=== PATIENT | female | born 1945 | race Caucasian/White ===

== ENCOUNTER 2019-03-29 18:10 | Inpatient (IN) | payer MEDICARE, OTHER ==
[2019-03-29 20:58] VITALS: BP 118/59
[2019-03-29] MEDS ORDERED: Acetaminophen 500 MG TAB PO PRN (21:00)
[2019-03-29] MEDS ORDERED: Magnesium Hydroxide (MOM) 30 mL UDC PO PRN (21:19)
[2019-03-29] MEDS ORDERED: Albuterol/Ipratropium Neb 3 ML AERS HHN PRN (21:19)
[2019-03-29] MEDS ORDERED: Maalox 30 mL Cup PO PRN (21:19)
--- NOTE | 2019-03-30 08:53 | History & Physical ---
ADMIT DATE: 03/30/2019 CHIEF COMPLAINT: Agitation and aggressive behavior. HISTORY OF PRESENT ILLNESS: This is a 73-year-old female who was originally admitted from [facility] Emergency Room. The patient used to live in a shelter facility on which she started to have aggressive behavior towards the staff. The patient was seen at the Emergency Room for medical clearance. Once medically cleared, the patient was transferred here to [facility] Psychiatric Unit for further behavioral health management. REVIEW OF SYSTEMS: GENERAL: This is a 73-year-old female. No fever, no weakness. HEAD: No headache. No dizziness. EYES: No eye pain, no blurring of vision. NECK: No neck pain or nuchal rigidity. CHEST: No chest pain or palpitation. PULMONARY: No coughing or shortness of breath. GASTROINTESTINAL: No abdominal pain, no constipation or diarrhea. MUSCULOSKELETAL: No joint pain. No muscle pain. SOCIAL HISTORY: The patient lives in a shelter facility prior to hospitalization. PAST SURGICAL HISTORY: Unremarkable. FAMILY HISTORY: Unremarkable. PSYCHIATRIC HISTORY: Includes bipolar disorder. PAST MEDICAL HISTORY: Includes osteoarthritis, osteoporosis. PAST SURGICAL HISTORY: Unremarkable. PHYSICAL EXAMINATION: VITAL SIGNS: Temperature 97.9, heart rate 60, blood pressure 118/59, respirations of 20, 96% on room air. GENERAL: This is a 73-year-old female that appears as stated, in no acute distress. HEENT: Head is atraumatic, normocephalic. Eyes: Bilateral conjunctivae are clear. Bilateral pupils are equally round and reactive. NECK: Supple. No JVD. CARDIOVASCULAR: S1 and S2, without murmur. LUNGS: Clear to auscultation. NEUROLOGIC: Soft and nontender without guarding. Positive bowel sounds. MUSCULOSKELETAL: No clubbing. No cyanosis noted. ASSESSMENT: 1. Psychosis. 2. Bipolar. 3. Osteoarthritis. 4. Osteoporosis. PLAN: We will admit the patient to Psychiatric Unit. We will follow up with a psychiatrist to monitor the patient's condition and behavior. We will put the patient on aspiration and fall precaution. We will do medication reconciliation accordingly. Treatment plans were discussed with the patient's nurse. Treatment plans were discussed with Dr. Arroyo. [facility]# [id number]
[2019-03-30] MEDS: Calcium Carb/Vit D 500 mg/200 U Tab PO SCH (10:00)
[2019-03-30] MEDS: Multivitamin Tab PO SCH (10:00)
[2019-03-30] MEDS: Hydrocodone/APAP 5mg/325mg Tab PO PRN (15:36)
--- NOTE | 2019-03-30 23:54 | Consultation ---
DATE OF CONSULTATION: 03/30/2019 The patient was seen and evaluated. The patient's chart reviewed. This is an initial psychiatric evaluation, covering for Dr. Fried. IDENTIFYING DATA: A 73-year-old female brought here from [facility] for aggressive behavior towards staff. Today on [id number]-[id number] evaluation, the patient mostly perseverates, screaming "aww, aww", angered. She does place her hand on her right knee and reports pain. Besides that information, she is more irritable and refuses to be interviewed, agitated at times during the interview. FAMILY PSYCHIATRIC HISTORY: Noncontributory. SOCIAL HISTORY: Living in senior living. PAST MEDICAL HISTORY: Includes osteoarthritis, osteoporosis. PAST PSYCHIATRIC HISTORY: History of dementia, unspecified mood disorder. FAMILY HISTORY: Noncontributory. CURRENT MEDICATIONS: Include albuterol, Fosamax, Celebrex, Depakote, Ativan, magnesium, Seroquel 25 mg p.o. at bedtime. MENTAL STATUS EXAMINATION: Irritable, anxious, perseverates on saying "aww", limited historian, limited insight, judgment and impulse control. ASSESSMENT AND PLAN: A 73-year-old female brought in here for aggressive behavior. After reviewing the medical evaluation by Dr. Lopez, no clear observation on the patient's pain. Through the nursing, called the exchange to contact again the medical doctor to further evaluate the patient's current knee pain that could also be exacerbating the patient's behavior as she is currently demented and difficulty engaging in conversation, not uncommon that the pain can exacerbate the patient's behavior. PLAN: 1. Admit the patient. 2. Dr. Arroyo to continue addressing the patient's pain. 3. Monitor and evaluate. 4. Continue with the current medication regimens. 5. Obtain more collateral baseline information. JOB# [id number]
[2019-03-31] MEDS: Calcium Carb/Vit D 500 mg/200 U Tab PO SCH (09:44)
[2019-03-31] MEDS: Multivitamin Tab PO SCH (09:44)
[2019-03-31] MEDS: Hydrocodone/APAP 5mg/325mg Tab PO PRN (09:46)
--- NOTE | 2019-03-31 16:26 | Internal Medicine Prog Note ---
Internal Medicine Subjective - Subjective Patient seen and examined:: with staff Patient is:: awake, verbal, in bed, agitated, confused Per staff patient has:: no adverse event, no episodes of fall Internal Medicine Objective - Physical Exam Vitals and I&O: Vital Signs Temp 98.6 F 03/31/19 14:00 Pulse 74 03/31/19 14:00 Resp 18 03/31/19 14:00 BP 98/54 03/31/19 14:00 Pulse Ox 100 03/31/19 14:00 Intake & Output 03/30/19 03/31/19 03/31/19 19:59 06:59 18:59 Intake Total Balance Intake: Oral Other: # Voids # Bowel Movements Active Medications: Current Medications Acetaminophen (Tylenol Extra Strength) 500 mg PO BID PRN PRN Reason: MILD PAIN (LEVEL 1-3) Stop: 05/28/19 20:59 Last Admin: 03/30/19 11:54 Dose: 500 mg Acetaminophen/Hydrocodone Bitart ([place] 5mg/325mg) 1 tab PO Q4H PRN PRN Reason: Pain (Moderate 4-6) Stop: 05/29/19 14:59 Last Admin: 03/31/19 09:46 Dose: 1 tab Al Hydrox/Mg Hydrox/Simethicone (Maalox) 30 ml PO Q4HR PRN PRN Reason: GI DISTRESS Stop: 05/28/19 21:18 Albuterol/Ipratropium (Duoneb Neb) 3 ml HHN Q4H PRN PRN Reason: Shortness of Breath Stop: 05/28/19 21:18 Alendronate Sodium (Fosamax) 70 mg PO @0630 [facility] Stop: 05/29/19 06:29 Last Admin: 03/30/19 06:51 Dose: 70 mg Calcium/Vitamin D (Oscal W/Vitamin D) 1 tab PO DAILY [facility] Stop: 05/29/19 08:59 Last Admin: 03/31/19 09:44 Dose: 1 tab Celecoxib (Celebrex) 100 mg PO BID [facility] Stop: 05/29/19 08:59 Last Admin: 03/31/19 09:47 Dose: 100 mg Divalproex Sodium (Depakote Dr) 125 mg PO [facility]; Protocol Stop: 05/29/19 20:59 Last Admin: 03/30/19 21:00 Dose: 125 mg Divalproex Sodium (Depakote Dr) 500 mg PO BID [facility]; Protocol Stop: 05/29/19 13:59 Last Admin: 03/31/19 09:48 Dose: 500 mg Lorazepam (Ativan) 0.5 mg PO TID [facility]; Protocol Stop: 05/29/19 08:59 Last Admin: 03/31/19 09:48 Dose: 0.5 mg Magnesium Hydroxide (Milk Of Magnesia) 30 ml PO HS PRN PRN Reason: Constipation Stop: 05/28/19 21:18 Magnesium Oxide (Mag-Oxide) 200 mg PO BID [facility] Stop: 05/29/19 08:59 Last Admin: 03/30/19 16:40 Dose: 200 mg Multivitamins/Vitamin C (Theragran) 1 tab PO DAILY [facility] Stop: 05/29/19 08:59 Last Admin: 03/31/19 09:44 Dose: 1 tab Quetiapine Fumarate (Seroquel) 25 mg PO HS [facility]; Protocol Stop: 05/29/19 20:59 Last Admin: 03/30/19 21:00 Dose: 25 mg Zolpidem Tartrate (Ambien) 5 mg PO HS PRN PRN Reason: Insomnia Stop: 05/28/19 21:18 General: weak, demented HEENT: NC/AT, PERRLA Neck: Supple, No JVD Lungs: other (no acute respiratory distress) Cardiovascular: RRR Abdomen: soft, non-tender, non-distended Extremities: other (right knee abrasion- healing) Internal Medicine Assmt/Plan - Assessment Assessment: Psychosis Bipolar OA Osteoporosis - Plan Plan: Continue current treatment plan. Monitor Labs. Continue current medications Continue to monitor VS Monitor Diet/Nutritional support. Psych management per Psychiatry. Pain Management. PT/OT prn Safety precaution, Fall precaution, frequent nursing round. Supportive care. Continue collaborating with consulting specialists, case management and nursing team
--- NOTE | 2019-03-31 18:44 | Progress Notes ---
DATE: SUBJECTIVE: The patient was seen and evaluated. The patient's chart reviewed. Overnight medical doctor ordered medications for the patient's pain, right knee pain and diagnosed with osteoarthritis. MENTAL STATUS EXAMINATION: Today on [id number] evaluation, reporting less pain. Still confused, need a lot of redirection, disengaged. ASSESSMENT AND PLAN: Behavior disturbances coming from dementia, currently in pain, being treated by medical doctor. The pain also exacerbates a lot of the patient's distraught, emotional state. We will continue monitoring and evaluating. Primary medical team to continue treating. JOB# [id number]
[2019-04-01] MEDS: Multivitamin Tab PO SCH (09:21)
[2019-04-01] MEDS: Calcium Carb/Vit D 500 mg/200 U Tab PO SCH (09:21)
--- NOTE | 2019-04-01 10:08 | Internal Medicine Prog Note ---
Internal Medicine Subjective - Subjective Service Date: 04/01/19 Patient seen and examined:: with staff Patient is:: awake, verbal, in bed, agitated, confused Patient Complaints of:: other (C/o Right knee pain.) Per staff patient has:: no adverse event, no episodes of fall Internal Medicine Objective - Physical Exam Vitals and I&O: Vital Signs Temp 97.2 F 04/01/19 06:35 Pulse 63 04/01/19 06:35 Resp 18 04/01/19 06:35 BP 97/65 04/01/19 06:35 Pulse Ox 95 04/01/19 06:35 Intake & Output 03/31/19 04/01/19 04/01/19 18:59 06:59 18:59 Intake Total 1100 360 Balance 1100 360 Intake: Oral 1100 360 Other: # Voids 3 Active Medications: Current Medications Acetaminophen (Tylenol Extra Strength) 500 mg PO BID PRN PRN Reason: MILD PAIN (LEVEL 1-3) Stop: 05/28/19 20:59 Last Admin: 03/30/19 11:54 Dose: 500 mg Acetaminophen/Hydrocodone Bitart ([place] 5mg/325mg) 1 tab PO Q4H PRN PRN Reason: Pain (Moderate 4-6) Stop: 05/29/19 14:59 Last Admin: 03/31/19 09:46 Dose: 1 tab Al Hydrox/Mg Hydrox/Simethicone (Maalox) 30 ml PO Q4HR PRN PRN Reason: GI DISTRESS Stop: 05/28/19 21:18 Albuterol/Ipratropium (Duoneb Neb) 3 ml HHN Q4H PRN PRN Reason: Shortness of Breath Stop: 05/28/19 21:18 Alendronate Sodium (Fosamax) 70 mg PO Sa@0630 [facility] Stop: 05/29/19 06:29 Last Admin: 03/30/19 06:51 Dose: 70 mg Calcium/Vitamin D (Oscal W/Vitamin D) 1 tab PO DAILY [facility] Stop: 05/29/19 08:59 Last Admin: 04/01/19 09:21 Dose: 1 tab Celecoxib (Celebrex) 100 mg PO BID [facility] Stop: 05/29/19 08:59 Last Admin: 04/01/19 09:21 Dose: 100 mg Divalproex Sodium (Depakote Dr) 125 mg PO HS [facility]; Protocol Stop: 05/29/19 20:59 Last Admin: 03/31/19 21:36 Dose: 125 mg Divalproex Sodium (Depakote Dr) 500 mg PO BID [facility]; Protocol Stop: 05/29/19 13:59 Last Admin: 04/01/19 09:21 Dose: 500 mg Lorazepam (Ativan) 0.5 mg PO TID [facility]; Protocol Stop: 05/29/19 08:59 Last Admin: 04/01/19 09:21 Dose: 0.5 mg Magnesium Hydroxide (Milk Of Magnesia) 30 ml PO HS PRN PRN Reason: Constipation Stop: 05/28/19 21:18 Magnesium Oxide (Mag-Oxide) 200 mg PO BID [facility] Stop: 05/29/19 08:59 Last Admin: 04/01/19 09:21 Dose: 200 mg Multivitamins/Vitamin C (Theragran) 1 tab PO DAILY [facility] Stop: 05/29/19 08:59 Last Admin: 04/01/19 09:21 Dose: 1 tab Quetiapine Fumarate (Seroquel) 25 mg PO HS [facility]; Protocol Stop: 05/29/19 20:59 Last Admin: 03/31/19 21:37 Dose: 25 mg Zolpidem Tartrate (Ambien) 5 mg PO HS PRN PRN Reason: Insomnia Stop: 05/28/19 21:18 Last Admin: 03/31/19 21:37 Dose: 5 mg Physical Exam: Patient's right knee pain is better controlled, still very dis-oriented and distraught, needs close monitoring. General: weak, demented HEENT: NC/AT, PERRLA Neck: Supple, No JVD Lungs: other (no acute respiratory distress) Cardiovascular: RRR Abdomen: soft, non-tender, non-distended Extremities: pain, other (right knee abrasion- healing) Neurological: no change, disorganized Internal Medicine Assmt/Plan - Assessment Assessment: Bipolar disorder. Osteoarthritis. Osteoporosis. Right knee pain. Psychosis. Dementia. - Plan Plan: Continuation of care. Monitor vitals and labs. Monitor diet and nutritional support. Continue present meds as directed. Psych management per Psych. Pain management. Fall precaution. Continue current treatment plan as ordered. Nutritional Asmnt/Malnutr-PDOC - Dietary Evaluation Malnutrition Findings (Please click <Entered> for more info): see orders.
[2019-04-02] MEDS: Calcium Carb/Vit D 500 mg/200 U Tab PO SCH (08:25)
[2019-04-02] MEDS: Multivitamin Tab PO SCH (08:25)
--- NOTE | 2019-04-02 17:03 | Internal Medicine Prog Note ---
Internal Medicine Subjective - Subjective Service Date: 04/02/19 Patient is:: awake, verbal, in bed, agitated, confused Patient Complaints of:: other (C/o Right knee pain.) Per staff patient has:: no adverse event, no episodes of fall Internal Medicine Objective - Physical Exam Vitals and I&O: Vital Signs Temp 98.3 F 04/02/19 14:00 Pulse 70 04/02/19 14:00 Resp 18 04/02/19 14:00 BP 114/64 04/02/19 14:00 Pulse Ox 96 04/02/19 14:00 Intake & Output 04/01/19 04/02/19 04/02/19 18:59 06:59 18:59 Intake Total 900 240 Balance 900 240 Intake: Oral 900 240 Other: # Voids 2 Active Medications: Current Medications Acetaminophen (Tylenol Extra Strength) 500 mg PO BID PRN PRN Reason: MILD PAIN (LEVEL 1-3) Stop: 05/28/19 20:59 Last Admin: 03/30/19 11:54 Dose: 500 mg Acetaminophen/Hydrocodone Bitart ([place] 5mg/325mg) 1 tab PO Q4H PRN PRN Reason: Pain (Moderate 4-6) Stop: 05/29/19 14:59 Last Admin: 03/31/19 09:46 Dose: 1 tab Al Hydrox/Mg Hydrox/Simethicone (Maalox) 30 ml PO Q4HR PRN PRN Reason: GI DISTRESS Stop: 05/28/19 21:18 Albuterol/Ipratropium (Duoneb Neb) 3 ml HHN Q4H PRN PRN Reason: Shortness of Breath Stop: 05/28/19 21:18 Alendronate Sodium (Fosamax) 70 mg PO @0630 [facility] Stop: 05/29/19 06:29 Last Admin: 03/30/19 06:51 Dose: 70 mg Calcium/Vitamin D (Oscal W/Vitamin D) 1 tab PO DAILY [facility] Stop: 05/29/19 08:59 Last Admin: 04/02/19 08:25 Dose: 1 tab Celecoxib (Celebrex) 100 mg PO BID [facility] Stop: 05/29/19 08:59 Last Admin: 04/02/19 16:58 Dose: 100 mg Divalproex Sodium (Depakote Dr) 125 mg PO [facility]; Protocol Stop: 05/29/19 20:59 Last Admin: 04/01/19 21:11 Dose: 125 mg Divalproex Sodium (Depakote Dr) 500 mg PO BID [facility]; Protocol Stop: 05/29/19 13:59 Last Admin: 04/02/19 16:57 Dose: 500 mg Lorazepam (Ativan) 0.5 mg PO TID [facility]; Protocol Stop: 05/29/19 08:59 Last Admin: 04/02/19 13:22 Dose: 0.5 mg Magnesium Hydroxide (Milk Of Magnesia) 30 ml PO HS PRN PRN Reason: Constipation Stop: 05/28/19 21:18 Magnesium Oxide (Mag-Oxide) 200 mg PO BID [facility] Stop: 05/29/19 08:59 Last Admin: 04/02/19 16:57 Dose: 200 mg Multivitamins/Vitamin C (Theragran) 1 tab PO DAILY [facility] Stop: 05/29/19 08:59 Last Admin: 04/02/19 08:25 Dose: 1 tab Quetiapine Fumarate (Seroquel) 25 mg PO BID [facility]; Protocol Stop: 06/01/19 08:59 Last Admin: 04/02/19 16:58 Dose: 25 mg Zolpidem Tartrate (Ambien) 5 mg PO HS PRN PRN Reason: Insomnia Stop: 05/28/19 21:18 Last Admin: 04/01/19 22:24 Dose: 5 mg General: weak, demented HEENT: NC/AT, PERRLA Neck: Supple, No JVD Lungs: other (no acute respiratory distress) Cardiovascular: RRR Abdomen: soft, non-tender, non-distended Extremities: pain, other (right knee abrasion- healing) Neurological: no change, disorganized Nutritional Asmnt/Malnutr-PDOC - Dietary Evaluation Malnutrition Findings (Please click <Entered> for more info): Nutritional Asmnt/Malnutrition Start: 04/01/19 12: 51 Text: Status: Active Freq: Protocol: Document 04/01/19 12:51 JAIME (Rec: 04/01/19 12:54 [email or web address]) Nutritional Asmnt/Malnutrition Patient General Information Nutritional Screening Moderate Risk Consult Diagnosis Psychosis Pertinent Medical Hx/Surgical Hx Bipolar Disorder, Osteoarthritis, Osteoporosis Subjective Information Consult: elevated BUN and BUN/ Cr Ratio Pt is a 73-year-old female admitted on 03/29 d/t aggressive behavior towards nursing facility staff. Pt is eating an estimated 67% of meals Per Meal/Nutrition Activity Record. Dietary is currently providing an estimated 2300 kcals and 70 gm Pro, per Pt PO intake this is providing an estimated 1540 kcals and 47gm Pro to meet 100 % kcal and 78% Pro needs. Spoke with nurse Granado concerning consult and pt labs . Creatinine and GFR are WNL, BUN is elevated, (03/25) Na 135, Bun/Cr 45/0.75, GRF 76. Recommended to push liquids as pt may be dehydrated and recommend removal of Renal diet restriction. Will continue to monitor nutrition related labs and PO intake. Anthropometrics HT: 55 WT: 129 LB (58.64 kg) BMI: 21.51 (Normal) GI/ Skin Integrity GI: WNL, Flat, Soft, Non- tender BM: 03/31 x2 I/O: 1460/Not Noted Skin: RT knee abrasion, healing Manny: 15 Diet Order: Pureed, Renal Standard Estimated Energy Needs: ( Geriatric, CBW) 9908-8042 kcals (25-30 kcals/ kg) 60-70g Pro (1.0-1.2 g/kg) 6442-4717 ml (25-30 ml/kg) Current Diet Order/ Nutrition Support Pureed, Renal Standard Pertinent Medications Maalox (PRN), Albuterol (PRN), Oscal with Vitamin D, MOM ( PRN), Mag-oxide, Theragran Pertinent Labs 03/25: Na 135, Bun/Cr 45/0.75, GRF 76 Nutritional Hx/Data Height 5 ft 5 in Height (Calculated Centimeters) 165.1 Current Weight (lbs) 129 lb Weight (Calculated Kilograms) 58.5 Weight (Calculated Grams) 85036.4 [place] Body Weight 125 LB (56.82 kg) % [place] Body Weight 103 Body Mass Index (BMI) 21.4 Weight Status Approriate GI Symptoms Last BM 03/31 x2 Skin Integrity/Comment: Skin: RT knee abrasion, healing Manny: 15 Current %PO Fair (50-74%) Estimated Nutritional Goals BEE in Kcals: Using Current wt Calories/Kcals/Kg 25-30 Kcals Calculated 2890-3263 Protein: Using Current wt Protein g/k.0-1.2 Protein Calculated 60-70 Fluid: ml 2155-3129 ml (25-30 ml/kg) Nutritional Problem 1. Problem Problem Altered nutrition related labs Etiology r/t pathophysiological causes Signs/Symptoms: aeb (03/25) Na 135, Bun/Cr 45/ 0.75, GRF 76. Intervention/Recommendation Comments Recommend removal of Renal diet restriction d/t Creatinine and GFR WNL. Expected Outcomes/Goals Expected Outcomes/Goals 1. PO intake to continue to meet >75% of nutritional needs . 2. Monitor PO intake, wt, nutrition related labs, and skin integrity. 3. F/U as low risk in 7-10 days, 04/08-04/11
--- NOTE | 2019-04-02 19:20 | Progress Notes ---
DATE: 04/01/2019 SUBJECTIVE: Chart was reviewed and the patient interviewed. Also discussed the patient's condition with the staff and reviewed records and labs. The patient is still uncooperative and still anxious and depressed mood. The patient is also still easily irritable and wants to be left alone and uncooperative with the staff. She also still at times ____. Otherwise, no side effects of medications. TREATMENT PLAN: Continue to monitor behavior and condition closely. Also, continue adjusting medications and work on behavioral modification. [facility]# [id number]
[2019-04-03] MEDS: Multivitamin Tab PO SCH (10:46)
[2019-04-03] MEDS: Calcium Carb/Vit D 500 mg/200 U Tab PO SCH (10:46)
--- NOTE | 2019-04-03 11:38 | Internal Medicine Prog Note ---
Internal Medicine Subjective - Subjective Service Date: 04/02/19 Patient seen and examined:: with staff Patient is:: awake, verbal, in bed, agitated, confused Patient Complaints of:: other (C/o Right knee pain.) Per staff patient has:: no adverse event, no episodes of fall Internal Medicine Objective - Physical Exam Vitals and I&O: Vital Signs Temp 97.4 F 04/03/19 06:13 Pulse 57 04/03/19 06:13 Resp 18 04/03/19 06:13 BP 102/74 04/03/19 06:13 Pulse Ox 94 04/03/19 06:13 Intake & Output 04/02/19 04/03/19 04/03/19 18:59 06:59 18:59 Intake Total 800 180 Balance 800 180 Intake: Oral 800 180 Other: # Voids 4 1 # Bowel Movements 0 0 Active Medications: Current Medications Acetaminophen (Tylenol Extra Strength) 500 mg PO BID PRN PRN Reason: MILD PAIN (LEVEL 1-3) Stop: 05/28/19 20:59 Last Admin: 03/30/19 11:54 Dose: 500 mg Acetaminophen/Hydrocodone Bitart ([place] 5mg/325mg) 1 tab PO Q4H PRN PRN Reason: Pain (Moderate 4-6) Stop: 05/29/19 14:59 Last Admin: 03/31/19 09:46 Dose: 1 tab Al Hydrox/Mg Hydrox/Simethicone (Maalox) 30 ml PO Q4HR PRN PRN Reason: GI DISTRESS Stop: 05/28/19 21:18 Albuterol/Ipratropium (Duoneb Neb) 3 ml HHN Q4H PRN PRN Reason: Shortness of Breath Stop: 05/28/19 21:18 Alendronate Sodium (Fosamax) 70 mg PO Sa@0630 [facility] Stop: 05/29/19 06:29 Last Admin: 03/30/19 06:51 Dose: 70 mg Calcium/Vitamin D (Oscal W/Vitamin D) 1 tab PO DAILY [facility] Stop: 05/29/19 08:59 Last Admin: 04/03/19 10:46 Dose: 1 tab Celecoxib (Celebrex) 100 mg PO BID [facility] Stop: 05/29/19 08:59 Last Admin: 04/03/19 10:46 Dose: 100 mg Divalproex Sodium (Depakote Dr) 500 mg PO BID [facility]; Protocol Stop: 05/29/19 13:59 Last Admin: 04/03/19 10:47 Dose: 500 mg Lorazepam (Ativan) 0.5 mg PO TID [facility]; Protocol Stop: 05/29/19 08:59 Last Admin: 04/03/19 10:46 Dose: 0.5 mg Magnesium Hydroxide (Milk Of Magnesia) 30 ml PO HS PRN PRN Reason: Constipation Stop: 05/28/19 21:18 Magnesium Oxide (Mag-Oxide) 200 mg PO BID [facility] Stop: 05/29/19 08:59 Last Admin: 04/03/19 10:46 Dose: 200 mg Multivitamins/Vitamin C (Theragran) 1 tab PO DAILY [facility] Stop: 05/29/19 08:59 Last Admin: 04/03/19 10:46 Dose: 1 tab Quetiapine Fumarate (Seroquel) 25 mg PO BID [facility]; Protocol Stop: 06/01/19 08:59 Last Admin: 04/03/19 10:47 Dose: 25 mg Zolpidem Tartrate (Ambien) 5 mg PO HS PRN PRN Reason: Insomnia Stop: 05/28/19 21:18 Last Admin: 04/01/19 22:24 Dose: 5 mg Physical Exam: Patient is anxious and very irritable, needs monitoring. General: weak, demented HEENT: NC/AT, PERRLA Neck: Supple, No JVD Lungs: other (no acute respiratory distress) Cardiovascular: RRR Abdomen: soft, non-tender, non-distended Extremities: pain, other (right knee abrasion- healing) Neurological: no change, disorganized Internal Medicine Assmt/Plan - Assessment Assessment: Bipolar disorder. Osteoarthritis. Osteoporosis. Right knee pain. Psychosis. Dementia. - Plan Plan: Continuation of care. Monitor vitals and labs. Monitor diet and nutritional support. Continue present meds as directed. Psych management per Psych. Pain management. Fall precaution. Continue current treatment plan as ordered. Nutritional Asmnt/Malnutr-PDOC - Dietary Evaluation Malnutrition Findings (Please click <Entered> for more info): Nutritional Asmnt/Malnutrition Start: 04/01/19 12: 51 Text: Status: Active Freq: Protocol: Document 04/01/19 12:51 JEXAMUS (Rec: 04/01/19 12:54 [email or web address] [email or web address]) Nutritional Asmnt/Malnutrition Patient General Information Nutritional Screening Moderate Risk Consult Diagnosis Psychosis Pertinent Medical Hx/Surgical Hx Bipolar Disorder, Osteoarthritis, Osteoporosis Subjective Information Consult: elevated BUN and BUN/ Cr Ratio Pt is a 73-year-old female admitted on 03/29 d/t aggressive behavior towards nursing facility staff. Pt is eating an estimated 67% of meals Per Meal/Nutrition Activity Record. Dietary is currently providing an estimated 2300 kcals and 70 gm Pro, per Pt PO intake this is providing an estimated 1540 kcals and 47gm Pro to meet 100 % kcal and 78% Pro needs. Spoke with nurse Granado concerning consult and pt labs . Creatinine and GFR are WNL, BUN is elevated, (03/25) Na 135, Bun/Cr 45/0.75, GRF 76. Recommended to push liquids as pt may be dehydrated and recommend removal of Renal diet restriction. Will continue to monitor nutrition related labs and PO intake. Anthropometrics HT: 55 WT: 129 LB (58.64 kg) BMI: 21.51 (Normal) GI/ Skin Integrity GI: WNL, Flat, Soft, Non- tender BM: 03/31 x2 I/O: 1460/Not Noted Skin: RT knee abrasion, healing Manny: 15 Diet Order: Pureed, Renal Standard Estimated Energy Needs: ( Geriatric, CBW) 7867-3110 kcals (25-30 kcals/ kg) 60-70g Pro (1.0-1.2 g/kg) 6759-5627 ml (25-30 ml/kg) Current Diet Order/ Nutrition Support Pureed, Renal Standard Pertinent Medications Maalox (PRN), Albuterol (PRN), Oscal with Vitamin D, MOM ( PRN), Mag-oxide, Theragran Pertinent Labs 03/25: Na 135, Bun/Cr 45/0.75, GRF 76 Nutritional Hx/Data Height 1.65 m Height (Calculated Centimeters) 165.1 Current Weight (lbs) 58.513 kg Weight (Calculated Kilograms) 58.5 Weight (Calculated Grams) 52884.4 [place] Body Weight 125 LB (56.82 kg) % [place] Body Weight 103 Body Mass Index (BMI) 21.4 Weight Status Approriate GI Symptoms Last BM 03/31 x2 Skin Integrity/Comment: Skin: RT knee abrasion, healing Manny: 15 Current %PO Fair (50-74%) Estimated Nutritional Goals BEE in Kcals: Using Current wt Calories/Kcals/Kg 25-30 Kcals Calculated 1611-3701 Protein: Using Current wt Protein g/k.0-1.2 Protein Calculated 60-70 Fluid: ml 0805-2964 ml (25-30 ml/kg) Nutritional Problem 1. Problem Problem Altered nutrition related labs Etiology r/t pathophysiological causes Signs/Symptoms: aeb (03/25) Na 135, Bun/Cr 45/ 0.75, GRF 76. Intervention/Recommendation Comments Recommend removal of Renal diet restriction d/t Creatinine and GFR WNL. Expected Outcomes/Goals Expected Outcomes/Goals 1. PO intake to continue to meet >75% of nutritional needs . 2. Monitor PO intake, wt, nutrition related labs, and skin integrity. 3. F/U as low risk in 7-10 days, 04/08-04/11
--- NOTE | 2019-04-03 18:55 | Progress Notes ---
DATE: SUBJECTIVE: Chart reviewed and the patient interviewed. Also discussed the patient's condition with the staff and reviewed records and labs. The patient is still confused and forgetful. The patient also yesterday had episode of yelling and screaming nonstop for quite some time and it took a lot of effort from staff to calm her down. She also still easily irritable and agitated, and she has severe mood swings. Otherwise, the patient is compliant with taking medications and cooperative with the staff. ASSESSMENT: The patient is still agitated and confused. TREATMENT PLAN: Continue Depakote and Ativan same dose, but we will increase Seroquel to 25 mg twice a day. Also, we will get a Depakote blood level and continue to follow up behavior and condition closely. JOB# [id number]
--- NOTE | 2019-04-04 01:47 | Progress Notes ---
DATE: SUBJECTIVE: Chart was reviewed and the patient interviewed. Also discussed the patient's condition with the staff and reviewed records and labs. The patient continued to be confused. She is yelling and screaming and she is restless. The patient also still has labile affect. She also was staying in bed most of the time, but at the same time yelling and screaming constantly for no reason and making noise all the time. Also, check possibility of the patient is having pain, but the patient is not complaining of any pain. Also, has screaming on and off. Otherwise, the patient is compliant with taking her medications. ASSESSMENT: The patient is still agitated and in irritable mood. TREATMENT PLAN: We will continue current medications, but we will decrease Depakote to 500 mg twice a day. Also, continue Ativan 1 mg 3 times a day and Seroquel 25 mg twice a day and continue to monitor behavior and condition closely. JOB# [id number]
[2019-04-04] MEDS: Multivitamin Tab PO SCH (09:31)
[2019-04-04] MEDS: Calcium Carb/Vit D 500 mg/200 U Tab PO SCH (09:31)
--- NOTE | 2019-04-04 11:16 | Internal Medicine Prog Note ---
Internal Medicine Subjective - Subjective Service Date: 04/04/19 Patient seen and examined:: with staff Patient is:: awake, verbal, in bed, agitated, confused Patient Complaints of:: other (C/o Right knee pain.) Per staff patient has:: no adverse event, no episodes of fall Internal Medicine Objective - Physical Exam Vitals and I&O: Vital Signs Temp 98.2 F 04/04/19 06:57 Pulse 58 04/04/19 06:57 Resp 17 04/04/19 07:35 BP 100/66 04/04/19 06:57 Pulse Ox 91 04/04/19 06:57 Intake & Output 04/03/19 04/04/19 04/04/19 18:59 06:59 18:59 Intake Total 1200 240 Balance 1200 240 Intake: Oral 1200 240 Other: # Voids 4 2 # Bowel Movements 0 0 Active Medications: Current Medications Acetaminophen (Tylenol Extra Strength) 500 mg PO BID PRN PRN Reason: MILD PAIN (LEVEL 1-3) Stop: 05/28/19 20:59 Last Admin: 03/30/19 11:54 Dose: 500 mg Acetaminophen/Hydrocodone Bitart ([place] 5mg/325mg) 1 tab PO Q4H PRN PRN Reason: Pain (Moderate 4-6) Stop: 05/29/19 14:59 Last Admin: 03/31/19 09:46 Dose: 1 tab Al Hydrox/Mg Hydrox/Simethicone (Maalox) 30 ml PO Q4HR PRN PRN Reason: GI DISTRESS Stop: 05/28/19 21:18 Albuterol/Ipratropium (Duoneb Neb) 3 ml HHN Q4H PRN PRN Reason: Shortness of Breath Stop: 05/28/19 21:18 Alendronate Sodium (Fosamax) 70 mg PO Sa@0630 [facility] Stop: 05/29/19 06:29 Last Admin: 03/30/19 06:51 Dose: 70 mg Calcium/Vitamin D (Oscal W/Vitamin D) 1 tab PO DAILY [facility] Stop: 05/29/19 08:59 Last Admin: 04/04/19 09:31 Dose: 1 tab Celecoxib (Celebrex) 100 mg PO BID [facility] Stop: 05/29/19 08:59 Last Admin: 04/04/19 09:32 Dose: 100 mg Divalproex Sodium (Depakote Dr) 500 mg PO BID [facility]; Protocol Stop: 05/29/19 13:59 Last Admin: 04/04/19 09:31 Dose: 500 mg Lorazepam (Ativan) 0.5 mg PO TID [facility]; Protocol Stop: 05/29/19 08:59 Last Admin: 04/04/19 09:32 Dose: 0.5 mg Magnesium Hydroxide (Milk Of Magnesia) 30 ml PO HS PRN PRN Reason: Constipation Stop: 05/28/19 21:18 Magnesium Oxide (Mag-Oxide) 200 mg PO BID [facility] Stop: 05/29/19 08:59 Last Admin: 04/04/19 09:31 Dose: 200 mg Multivitamins/Vitamin C (Theragran) 1 tab PO DAILY [facility] Stop: 05/29/19 08:59 Last Admin: 04/04/19 09:31 Dose: 1 tab Quetiapine Fumarate (Seroquel) 25 mg PO BID [facility]; Protocol Stop: 06/01/19 08:59 Last Admin: 04/04/19 09:31 Dose: 25 mg Zolpidem Tartrate (Ambien) 5 mg PO HS PRN PRN Reason: Insomnia Stop: 05/28/19 21:18 Last Admin: 04/01/19 22:24 Dose: 5 mg Physical Exam: Patient is confused and agitated, continue monitoring. General: weak, demented HEENT: NC/AT, PERRLA Neck: Supple, No JVD Lungs: other (no acute respiratory distress) Cardiovascular: RRR Abdomen: soft, non-tender, non-distended Extremities: pain, other (right knee abrasion- healing) Neurological: no change, disorganized Internal Medicine Assmt/Plan - Assessment Assessment: Bipolar disorder. Osteoarthritis. Osteoporosis. Right knee pain. Psychosis. Dementia. - Plan Plan: Continuation of care. Monitor vitals and labs. Monitor diet and nutritional support. Continue present meds as directed. Psych management per Psych. Pain management. Fall precaution. Continue present care management. Nutritional Asmnt/Malnutr-PDOC - Dietary Evaluation Malnutrition Findings (Please click <Entered> for more info): Nutritional Asmnt/Malnutrition Start: 04/01/19 12: 51 Text: Status: Active Freq: Protocol: Document 04/01/19 12:51 JAIME (Rec: 04/01/19 12:54 JAIME [email or web address]) Nutritional Asmnt/Malnutrition Patient General Information Nutritional Screening Moderate Risk Consult Diagnosis Psychosis Pertinent Medical Hx/Surgical Hx Bipolar Disorder, Osteoarthritis, Osteoporosis Subjective Information Consult: elevated BUN and BUN/ Cr Ratio Pt is a 73-year-old female admitted on 03/29 d/t aggressive behavior towards nursing facility staff. Pt is eating an estimated 67% of meals Per Meal/Nutrition Activity Record. Dietary is currently providing an estimated 2300 kcals and 70 gm Pro, per Pt PO intake this is providing an estimated 1540 kcals and 47gm Pro to meet 100 % kcal and 78% Pro needs. Spoke with nurse Granado concerning consult and pt labs . Creatinine and GFR are WNL, BUN is elevated, (03/25) Na 135, Bun/Cr 45/0.75, GRF 76. Recommended to push liquids as pt may be dehydrated and recommend removal of Renal diet restriction. Will continue to monitor nutrition related labs and PO intake. Anthropometrics HT: 55 WT: 129 LB (58.64 kg) BMI: 21.51 (Normal) GI/ Skin Integrity GI: WNL, Flat, Soft, Non- tender BM: 03/31 x2 I/O: 1460/Not Noted Skin: RT knee abrasion, healing Manny: 15 Diet Order: Pureed, Renal Standard Estimated Energy Needs: ( Geriatric, CBW) 2003-9046 kcals (25-30 kcals/ kg) 60-70g Pro (1.0-1.2 g/kg) 3359-4737 ml (25-30 ml/kg) Current Diet Order/ Nutrition Support Pureed, Renal Standard Pertinent Medications Maalox (PRN), Albuterol (PRN), Oscal with Vitamin D, MOM ( PRN), Mag-oxide, Theragran Pertinent Labs 03/25: Na 135, Bun/Cr 45/0.75, GRF 76 Nutritional Hx/Data Height 1.65 m Height (Calculated Centimeters) 165.1 Current Weight (lbs) 58.513 kg Weight (Calculated Kilograms) 58.5 Weight (Calculated Grams) 31343.4 [place] Body Weight 125 LB (56.82 kg) % [place] Body Weight 103 Body Mass Index (BMI) 21.4 Weight Status Approriate GI Symptoms Last BM 03/31 x2 Skin Integrity/Comment: Skin: RT knee abrasion, healing Manny: 15 Current %PO Fair (50-74%) Estimated Nutritional Goals BEE in Kcals: Using Current wt Calories/Kcals/Kg 25-30 Kcals Calculated 8908-4204 Protein: Using Current wt Protein g/k.0-1.2 Protein Calculated 60-70 Fluid: ml 4405-8174 ml (25-30 ml/kg) Nutritional Problem 1. Problem Problem Altered nutrition related labs Etiology r/t pathophysiological causes Signs/Symptoms: aeb (03/25) Na 135, Bun/Cr 45/ 0.75, GRF 76. Intervention/Recommendation Comments Recommend removal of Renal diet restriction d/t Creatinine and GFR WNL. Expected Outcomes/Goals Expected Outcomes/Goals 1. PO intake to continue to meet >75% of nutritional needs . 2. Monitor PO intake, wt, nutrition related labs, and skin integrity. 3. F/U as low risk in 7-10 days, 04/08-04/11
[2019-04-04] MEDS: Hydrocodone/APAP 5mg/325mg Tab PO PRN (22:13)
--- NOTE | 2019-04-05 01:05 | Progress Notes ---
DATE: 04/04/2019 SUBJECTIVE: Chart reviewed and the patient interviewed. Also discussed the patient's condition with the staff and reviewed records and labs. The patient is still confused and easily agitated. She also had episodes of yelling and screaming continuously for no apparent reason. The patient also is still having severe mood swings and needs lots of redirections. On the other hand, the patient is compliant with taking her medications with no side effects of Depakote or Seroquel, especially when I decreased Depakote now to only 500 mg twice a day. ASSESSMENT: The patient is still confused and agitated. TREATMENT PLAN: Continue current treatment and current dose and working on her behavior modification and adjusting medications and her irritability. Also, Depakote blood level that was done on 04/02/2019 came back to be 82, which is within therapeutic level. We will monitor the dose and we will monitor behavior and follow up closely. JOB# [id number]
[2019-04-05] MEDS: Multivitamin Tab PO SCH (08:54)
[2019-04-05] MEDS: Calcium Carb/Vit D 500 mg/200 U Tab PO SCH (08:54)
[2019-04-05] MEDS: Hydrocodone/APAP 5mg/325mg Tab PO PRN (08:55)
--- NOTE | 2019-04-05 12:50 | Internal Medicine Prog Note ---
Internal Medicine Subjective - Subjective Service Date: 04/05/19 Patient is:: awake, verbal, in bed, agitated, confused Patient Complaints of:: other (C/o Right knee pain.) Per staff patient has:: no adverse event, no episodes of fall Internal Medicine Objective - Physical Exam Vitals and I&O: Vital Signs Temp 98.2 F 04/05/19 06:26 Pulse 53 04/05/19 06:26 Resp 20 04/05/19 06:26 BP 110/54 04/05/19 06:26 Pulse Ox 98 04/05/19 06:26 Intake & Output 04/04/19 04/05/19 04/05/19 18:59 06:59 18:59 Intake Total 240 Balance 240 Intake: Oral 240 Other: # Voids 2 # Bowel Movements 0 Active Medications: Current Medications Acetaminophen (Tylenol Extra Strength) 500 mg PO BID PRN PRN Reason: MILD PAIN (LEVEL 1-3) Stop: 05/28/19 20:59 Last Admin: 03/30/19 11:54 Dose: 500 mg Acetaminophen/Hydrocodone Bitart ([place] 5mg/325mg) 1 tab PO Q4H PRN PRN Reason: Pain (Moderate 4-6) Stop: 05/29/19 14:59 Last Admin: 04/05/19 08:55 Dose: 1 tab Al Hydrox/Mg Hydrox/Simethicone (Maalox) 30 ml PO Q4HR PRN PRN Reason: GI DISTRESS Stop: 05/28/19 21:18 Albuterol/Ipratropium (Duoneb Neb) 3 ml HHN Q4H PRN PRN Reason: Shortness of Breath Stop: 05/28/19 21:18 Alendronate Sodium (Fosamax) 70 mg PO @0630 [facility] Stop: 05/29/19 06:29 Last Admin: 03/30/19 06:51 Dose: 70 mg Calcium/Vitamin D (Oscal W/Vitamin D) 1 tab PO DAILY [facility] Stop: 05/29/19 08:59 Last Admin: 04/05/19 08:54 Dose: 1 tab Celecoxib (Celebrex) 100 mg PO BID [facility] Stop: 05/29/19 08:59 Last Admin: 04/05/19 08:54 Dose: 100 mg Divalproex Sodium (Depakote Dr) 500 mg PO BID [facility]; Protocol Stop: 05/29/19 13:59 Last Admin: 04/05/19 08:54 Dose: 500 mg Lorazepam (Ativan) 0.5 mg PO TID [facility]; Protocol Stop: 05/29/19 08:59 Last Admin: 04/05/19 08:55 Dose: 0.5 mg Magnesium Hydroxide (Milk Of Magnesia) 30 ml PO HS PRN PRN Reason: Constipation Stop: 05/28/19 21:18 Magnesium Oxide (Mag-Oxide) 200 mg PO BID [facility] Stop: 05/29/19 08:59 Last Admin: 04/05/19 08:55 Dose: 200 mg Multivitamins/Vitamin C (Theragran) 1 tab PO DAILY [facility] Stop: 05/29/19 08:59 Last Admin: 04/05/19 08:54 Dose: 1 tab Quetiapine Fumarate (Seroquel) 25 mg PO BID [facility]; Protocol Stop: 06/01/19 08:59 Last Admin: 04/05/19 08:54 Dose: 25 mg Zolpidem Tartrate (Ambien) 5 mg PO HS PRN PRN Reason: Insomnia Stop: 05/28/19 21:18 Last Admin: 04/04/19 23:05 Dose: 5 mg General: weak, demented HEENT: NC/AT, PERRLA Neck: Supple, No JVD Lungs: other (no acute respiratory distress) Cardiovascular: RRR Abdomen: soft, non-tender, non-distended Extremities: pain, other (right knee abrasion- healing) Neurological: no change, disorganized Nutritional Asmnt/Malnutr-PDOC - Dietary Evaluation Malnutrition Findings (Please click <Entered> for more info): Nutritional Asmnt/Malnutrition Start: 04/01/19 12: 51 Text: Status: Active Freq: Protocol: Document 04/01/19 12:51 JAIME (Rec: 04/01/19 12:54 JAIME [email or web address]) Nutritional Asmnt/Malnutrition Patient General Information Nutritional Screening Moderate Risk Consult Diagnosis Psychosis Pertinent Medical Hx/Surgical Hx Bipolar Disorder, Osteoarthritis, Osteoporosis Subjective Information Consult: elevated BUN and BUN/ Cr Ratio Pt is a 73-year-old female admitted on 03/29 d/t aggressive behavior towards nursing facility staff. Pt is eating an estimated 67% of meals Per Meal/Nutrition Activity Record. Dietary is currently providing an estimated 2300 kcals and 70 gm Pro, per Pt PO intake this is providing an estimated 1540 kcals and 47gm Pro to meet 100 % kcal and 78% Pro needs. Spoke with nurse Granado concerning consult and pt labs . Creatinine and GFR are WNL, BUN is elevated, (03/25) Na 135, Bun/Cr 45/0.75, GRF 76. Recommended to push liquids as pt may be dehydrated and recommend removal of Renal diet restriction. Will continue to monitor nutrition related labs and PO intake. Anthropometrics HT: 55 WT: 129 LB (58.64 kg) BMI: 21.51 (Normal) GI/ Skin Integrity GI: WNL, Flat, Soft, Non- tender BM: 03/31 x2 I/O: 1460/Not Noted Skin: RT knee abrasion, healing Manny: 15 Diet Order: Pureed, Renal Standard Estimated Energy Needs: ( Geriatric, CBW) 5599-6255 kcals (25-30 kcals/ kg) 60-70g Pro (1.0-1.2 g/kg) 4383-5804 ml (25-30 ml/kg) Current Diet Order/ Nutrition Support Pureed, Renal Standard Pertinent Medications Maalox (PRN), Albuterol (PRN), Oscal with Vitamin D, MOM ( PRN), Mag-oxide, Theragran Pertinent Labs 03/25: Na 135, Bun/Cr 45/0.75, GRF 76 Nutritional Hx/Data Height 5 ft 5 in Height (Calculated Centimeters) 165.1 Current Weight (lbs) 129 lb Weight (Calculated Kilograms) 58.5 Weight (Calculated Grams) 26286.4 [place] Body Weight 125 LB (56.82 kg) % [place] Body Weight 103 Body Mass Index (BMI) 21.4 Weight Status Approriate GI Symptoms Last BM 03/31 x2 Skin Integrity/Comment: Skin: RT knee abrasion, healing Manny: 15 Current %PO Fair (50-74%) Estimated Nutritional Goals BEE in Kcals: Using Current wt Calories/Kcals/Kg 25-30 Kcals Calculated 5207-7910 Protein: Using Current wt Protein g/k.0-1.2 Protein Calculated 60-70 Fluid: ml 3132-0558 ml (25-30 ml/kg) Nutritional Problem 1. Problem Problem Altered nutrition related labs Etiology r/t pathophysiological causes Signs/Symptoms: aeb (03/25) Na 135, Bun/Cr 45/ 0.75, GRF 76. Intervention/Recommendation Comments Recommend removal of Renal diet restriction d/t Creatinine and GFR WNL. Expected Outcomes/Goals Expected Outcomes/Goals 1. PO intake to continue to meet >75% of nutritional needs . 2. Monitor PO intake, wt, nutrition related labs, and skin integrity. 3. F/U as low risk in 7-10 days, 04/08-04/11
--- NOTE | 2019-04-06 04:15 | Progress Notes ---
DATE: SUBJECTIVE: Chart was reviewed and the patient interviewed. Also discussed the patient's condition with the staff and reviewed records and labs. The patient is still having episodes of yelling and screaming for no reason. The patient also is saying "help help" and when staff approach her, she has no reason for yelling and screaming and she does not need any help. She is still confused and restless and still has difficulty with her mood. Otherwise, the patient is compliant with taking her medications with no side effects of medications. ASSESSMENT: The patient is still agitated and is still confused. TREATMENT PLAN: Continue monitoring her behavior and her condition closely. Also, continue current psychotropic medications and work on behavioral modification. [facility]# [id number]
[2019-04-06] MEDS: Multivitamin Tab PO SCH (09:14)
[2019-04-06] MEDS: Calcium Carb/Vit D 500 mg/200 U Tab PO SCH (09:18)
--- NOTE | 2019-04-06 20:19 | Progress Notes ---
DATE: 04/06/2019 SUBJECTIVE: The patient was seen in her room. The patient is asleep, but easily arousable. The patient easily gets frustrated and agitated. The patient appears to be guarded, still has episodes of behavioral outbursts. Otherwise, the patient is in no acute distress. OBJECTIVE: VITAL SIGNS: Temperature 97.7, heart rate 63, blood pressure 144/57, respirations 20, 94% on room air. HEENT: Head is atraumatic and normocephalic. Eyes: Bilateral conjunctivae are clear. Bilateral pupils are equally round and reactive. NECK: Supple. No JVD. CARDIOVASCULAR: S1 and S2, without murmur. PULMONARY: Clear to auscultation. GASTROINTESTINAL: Soft and nontender without guarding. Positive bowel sounds. MUSCULOSKELETAL: No clubbing. No cyanosis noted. ASSESSMENT: 1. Psychosis. 2. Osteoarthritis. 3. Osteoporosis. PLAN: We will keep the patient inpatient to Psychiatric Unit. We will follow up with the psychiatrist to monitor the patient's condition and behavior. We will put the patient on fall precautions. Treatment plans were discussed with the patient's nurse. Treatment plans were discussed with Dr. Arroyo. JOB# [id number]
[2019-04-06] MEDS: Hydrocodone/APAP 5mg/325mg Tab PO PRN (20:50)
[2019-04-07] MEDS: Multivitamin Tab PO SCH (09:00)
[2019-04-07] MEDS: Calcium Carb/Vit D 500 mg/200 U Tab PO SCH (09:00)
--- NOTE | 2019-04-07 09:10 | Progress Notes ---
DATE: 04/06/2019 SUBJECTIVE: Chart reviewed and the patient interviewed. Also discussed the patient's condition with the staff and reviewed records and labs. The patient is still having episodes of yelling and screaming and she is still easily irritable and needs redirections. The patient also is still at times suspicious, but no major behavioral problems. The patient also does at times have mood swings. Otherwise, the patient is compliant with taking her medications with no side effects of medications. ASSESSMENT: The patient still needs close monitoring. TREATMENT PLAN: Continue to monitor behavior and condition closely. Also, continue adjusting psychotropic medications and work on behavioral modification. JOB# [id number]
--- NOTE | 2019-04-07 10:14 | Progress Notes ---
DATE: 04/07/2019 PSYCHIATRIC PROGRESS NOTE SUBJECTIVE: Chart reviewed and the patient interviewed. Also discussed the patient's condition with the staff and reviewed records and labs. The patient is still confused and guarded. The patient is still having episodes of yelling and screaming. She also is still needing Ativan to help with her agitation and irritability. The patient also is still unable to make her needs known and she is still rambling and her thought processes are circumstantial and tangential with flight of ideas. Otherwise, the patient is compliant with taking her medications and the patient has no side effects of medications. ASSESSMENT: The patient is still confused and she is still agitated. TREATMENT PLAN: Continue to monitor her behavior and her condition closely. Also, continue adjusting psychotropic medications and work on behavioral modification. [facility]# [id number]
--- NOTE | 2019-04-07 12:12 | Internal Medicine Prog Note ---
Internal Medicine Subjective - Subjective Service Date: 04/07/19 Patient is:: awake, verbal, in bed, agitated, confused Patient Complaints of:: other (C/o Right knee pain.) Per staff patient has:: no adverse event, no episodes of fall Internal Medicine Objective - Physical Exam Vitals and I&O: Vital Signs Temp 97.6 F 04/07/19 06:32 Pulse 55 04/07/19 06:32 Resp 18 04/07/19 06:32 BP 99/71 04/07/19 06:32 Pulse Ox 96 04/07/19 06:32 Intake & Output 04/06/19 04/07/19 04/07/19 18:59 06:59 18:59 Intake Total 1200 360 Output Total 2 Balance 1200 358 Intake: Oral 1200 360 Output: Urine/Stool Mix 2 Other: # Voids 4 1 # Bowel Movements 1 1 Active Medications: Current Medications Acetaminophen (Tylenol Extra Strength) 500 mg PO BID PRN PRN Reason: MILD PAIN (LEVEL 1-3) Stop: 05/28/19 20:59 Last Admin: 03/30/19 11:54 Dose: 500 mg Acetaminophen/Hydrocodone Bitart ([place] 5mg/325mg) 1 tab PO Q4H PRN PRN Reason: Pain (Moderate 4-6) Stop: 05/29/19 14:59 Last Admin: 04/06/19 20:50 Dose: 1 tab Al Hydrox/Mg Hydrox/Simethicone (Maalox) 30 ml PO Q4HR PRN PRN Reason: GI DISTRESS Stop: 05/28/19 21:18 Albuterol/Ipratropium (Duoneb Neb) 3 ml HHN Q4H PRN PRN Reason: Shortness of Breath Stop: 05/28/19 21:18 Alendronate Sodium (Fosamax) 70 mg PO Sa@0630 [facility] Stop: 05/29/19 06:29 Last Admin: 04/06/19 06:21 Dose: 70 mg Calcium/Vitamin D (Oscal W/Vitamin D) 1 tab PO DAILY [facility] Stop: 05/29/19 08:59 Last Admin: 04/07/19 09:00 Dose: 1 tab Celecoxib (Celebrex) 100 mg PO BID [facility] Stop: 05/29/19 08:59 Last Admin: 04/07/19 10:00 Dose: 100 mg Divalproex Sodium (Depakote Dr) 500 mg PO BID [facility]; Protocol Stop: 05/29/19 13:59 Last Admin: 04/07/19 10:00 Dose: 500 mg Lorazepam (Ativan) 0.5 mg PO TID [facility]; Protocol Stop: 05/29/19 08:59 Last Admin: 04/07/19 10:00 Dose: 0.5 mg Magnesium Hydroxide (Milk Of Magnesia) 30 ml PO HS PRN PRN Reason: Constipation Stop: 05/28/19 21:18 Magnesium Oxide (Mag-Oxide) 200 mg PO BID [facility] Stop: 05/29/19 08:59 Last Admin: 04/07/19 09:00 Dose: 200 mg Multivitamins/Vitamin C (Theragran) 1 tab PO DAILY [facility] Stop: 05/29/19 08:59 Last Admin: 04/07/19 09:00 Dose: 1 tab Quetiapine Fumarate (Seroquel) 25 mg PO BID [facility]; Protocol Stop: 06/01/19 08:59 Last Admin: 04/07/19 10:00 Dose: 25 mg Zolpidem Tartrate (Ambien) 5 mg PO HS PRN PRN Reason: Insomnia Stop: 05/28/19 21:18 Last Admin: 04/04/19 23:05 Dose: 5 mg General: weak, demented HEENT: NC/AT, PERRLA Neck: Supple, No JVD Lungs: other (no acute respiratory distress) Cardiovascular: RRR Abdomen: soft, non-tender, non-distended Extremities: pain, other (right knee abrasion- healing) Neurological: no change, disorganized Internal Medicine Assmt/Plan - Assessment Assessment: Bipolar disorder. Osteoarthritis. Osteoporosis. Right knee pain. Psychosis. Dementia. - Plan Plan: Continuation of care. Monitor vitals and labs. Monitor diet and nutritional support. Continue present meds as directed. Psych management per Psych. Pain management. Fall precaution. Continue present care management. Nutritional Asmnt/Malnutr-PDOC - Dietary Evaluation Malnutrition Findings (Please click <Entered> for more info): Nutritional Asmnt/Malnutrition Start: 04/01/19 12: 51 Text: Status: Active Freq: Protocol: Document 04/01/19 12:51 JAIME (Rec: 04/01/19 12:54 JAIME [email or web address]) Nutritional Asmnt/Malnutrition Patient General Information Nutritional Screening Moderate Risk Consult Diagnosis Psychosis Pertinent Medical Hx/Surgical Hx Bipolar Disorder, Osteoarthritis, Osteoporosis Subjective Information Consult: elevated BUN and BUN/ Cr Ratio Pt is a 73-year-old female admitted on 03/29 d/t aggressive behavior towards nursing facility staff. Pt is eating an estimated 67% of meals Per Meal/Nutrition Activity Record. Dietary is currently providing an estimated 2300 kcals and 70 gm Pro, per Pt PO intake this is providing an estimated 1540 kcals and 47gm Pro to meet 100 % kcal and 78% Pro needs. Spoke with nurse Granado concerning consult and pt labs . Creatinine and GFR are WNL, BUN is elevated, (03/25) Na 135, Bun/Cr 45/0.75, GRF 76. Recommended to push liquids as pt may be dehydrated and recommend removal of Renal diet restriction. Will continue to monitor nutrition related labs and PO intake. Anthropometrics HT: 55 WT: 129 LB (58.64 kg) BMI: 21.51 (Normal) GI/ Skin Integrity GI: WNL, Flat, Soft, Non- tender BM: 03/31 x2 I/O: 1460/Not Noted Skin: RT knee abrasion, healing Manny: 15 Diet Order: Pureed, Renal Standard Estimated Energy Needs: ( Geriatric, CBW) 6305-0893 kcals (25-30 kcals/ kg) 60-70g Pro (1.0-1.2 g/kg) 4458-4861 ml (25-30 ml/kg) Current Diet Order/ Nutrition Support Pureed, Renal Standard Pertinent Medications Maalox (PRN), Albuterol (PRN), Oscal with Vitamin D, MOM ( PRN), Mag-oxide, Theragran Pertinent Labs 03/25: Na 135, Bun/Cr 45/0.75, GRF 76 Nutritional Hx/Data Height 5 ft 5 in Height (Calculated Centimeters) 165.1 Current Weight (lbs) 129 lb Weight (Calculated Kilograms) 58.5 Weight (Calculated Grams) 78448.4 [place] Body Weight 125 LB (56.82 kg) % [place] Body Weight 103 Body Mass Index (BMI) 21.4 Weight Status Approriate GI Symptoms Last BM 03/31 x2 Skin Integrity/Comment: Skin: RT knee abrasion, healing Manny: 15 Current %PO Fair (50-74%) Estimated Nutritional Goals BEE in Kcals: Using Current wt Calories/Kcals/Kg 25-30 Kcals Calculated 3670-5686 Protein: Using Current wt Protein g/k.0-1.2 Protein Calculated 60-70 Fluid: ml 7624-5816 ml (25-30 ml/kg) Nutritional Problem 1. Problem Problem Altered nutrition related labs Etiology r/t pathophysiological causes Signs/Symptoms: aeb (03/25) Na 135, Bun/Cr 45/ 0.75, GRF 76. Intervention/Recommendation Comments Recommend removal of Renal diet restriction d/t Creatinine and GFR WNL. Expected Outcomes/Goals Expected Outcomes/Goals 1. PO intake to continue to meet >75% of nutritional needs . 2. Monitor PO intake, wt, nutrition related labs, and skin integrity. 3. F/U as low risk in 7-10 days, 04/08-04/11
[2019-04-08] MEDS: Hydrocodone/APAP 5mg/325mg Tab PO PRN ×2 (08:19→20:21)
[2019-04-08] MEDS: Multivitamin Tab PO SCH (08:19)
[2019-04-08] MEDS: Calcium Carb/Vit D 500 mg/200 U Tab PO SCH (08:20)
--- NOTE | 2019-04-08 14:00 | Internal Medicine Prog Note ---
Internal Medicine Subjective - Subjective Service Date: 04/08/19 Patient seen and examined:: with staff Patient is:: awake, verbal, agitated, confused Patient Complaints of:: other (C/o Right knee pain.) Per staff patient has:: no adverse event, no episodes of fall Internal Medicine Objective - Physical Exam Vitals and I&O: Vital Signs Temp 96.9 F 04/08/19 06:24 Pulse 65 04/08/19 06:24 Resp 18 04/08/19 08:00 BP 132/50 04/08/19 06:24 Pulse Ox 94 04/08/19 06:24 Intake & Output 04/07/19 04/08/19 04/08/19 18:59 06:59 18:59 Intake Total 480 180 Output Total 1 Balance 480 179 Intake: Oral 360 180 Other 120 Output: Urine/Stool Mix 1 Other: # Voids 3 1 # Bowel Movements 1 0 Active Medications: Current Medications Acetaminophen (Tylenol Extra Strength) 500 mg PO BID PRN PRN Reason: MILD PAIN (LEVEL 1-3) Stop: 05/28/19 20:59 Last Admin: 03/30/19 11:54 Dose: 500 mg Acetaminophen/Hydrocodone Bitart ([place] 5mg/325mg) 1 tab PO Q4H PRN PRN Reason: Pain (Moderate 4-6) Stop: 05/29/19 14:59 Last Admin: 04/08/19 08:19 Dose: 1 tab Al Hydrox/Mg Hydrox/Simethicone (Maalox) 30 ml PO Q4HR PRN PRN Reason: GI DISTRESS Stop: 05/28/19 21:18 Albuterol/Ipratropium (Duoneb Neb) 3 ml HHN Q4H PRN PRN Reason: Shortness of Breath Stop: 05/28/19 21:18 Alendronate Sodium (Fosamax) 70 mg PO Sa@0630 [facility] Stop: 05/29/19 06:29 Last Admin: 04/06/19 06:21 Dose: 70 mg Calcium/Vitamin D (Oscal W/Vitamin D) 1 tab PO DAILY [facility] Stop: 05/29/19 08:59 Last Admin: 04/08/19 08:20 Dose: 1 tab Celecoxib (Celebrex) 100 mg PO BID [facility] Stop: 05/29/19 08:59 Last Admin: 04/08/19 08:20 Dose: 100 mg Divalproex Sodium (Depakote Dr) 500 mg PO BID [facility]; Protocol Stop: 05/29/19 13:59 Last Admin: 04/08/19 08:19 Dose: 500 mg Lorazepam (Ativan) 0.5 mg PO TID [facility]; Protocol Stop: 05/29/19 08:59 Last Admin: 04/08/19 08:20 Dose: 0.5 mg Magnesium Hydroxide (Milk Of Magnesia) 30 ml PO HS PRN PRN Reason: Constipation Stop: 05/28/19 21:18 Magnesium Oxide (Mag-Oxide) 200 mg PO BID [facility] Stop: 05/29/19 08:59 Last Admin: 04/08/19 08:19 Dose: 200 mg Multivitamins/Vitamin C (Theragran) 1 tab PO DAILY [facility] Stop: 05/29/19 08:59 Last Admin: 04/08/19 08:19 Dose: 1 tab Quetiapine Fumarate (Seroquel) 25 mg PO BID [facility]; Protocol Stop: 06/01/19 08:59 Last Admin: 04/08/19 08:20 Dose: 25 mg Zolpidem Tartrate (Ambien) 5 mg PO HS PRN PRN Reason: Insomnia Stop: 05/28/19 21:18 Last Admin: 04/07/19 20:21 Dose: 5 mg Physical Exam: Patient is irritable and dis-oriented continue monitoring. General: weak, demented HEENT: NC/AT, PERRLA Neck: Supple, No JVD Lungs: other (no acute respiratory distress) Cardiovascular: RRR Abdomen: soft, non-tender, non-distended Extremities: pain, other (right knee abrasion- healing) Neurological: no change, disorganized Internal Medicine Assmt/Plan - Assessment Assessment: Bipolar disorder. Osteoarthritis. Osteoporosis. Right knee pain. Psychosis. Dementia. - Plan Plan: Continuation of care. Monitor vitals and labs. Monitor diet and nutritional support. Continue present meds as directed. Psych management per Psych. Pain management. Fall precaution. Continue present care management. Nutritional Asmnt/Malnutr-PDOC - Dietary Evaluation Malnutrition Findings (Please click <Entered> for more info): Nutritional Asmnt/Malnutrition Start: 04/01/19 12: 51 Text: Status: Active Freq: Protocol: Document 04/01/19 12:51 JAIME (Rec: 04/01/19 12:54 [email or web address]) Nutritional Asmnt/Malnutrition Patient General Information Nutritional Screening Moderate Risk Consult Diagnosis Psychosis Pertinent Medical Hx/Surgical Hx Bipolar Disorder, Osteoarthritis, Osteoporosis Subjective Information Consult: elevated BUN and BUN/ Cr Ratio Pt is a 73-year-old female admitted on 03/29 d/t aggressive behavior towards nursing facility staff. Pt is eating an estimated 67% of meals Per Meal/Nutrition Activity Record. Dietary is currently providing an estimated 2300 kcals and 70 gm Pro, per Pt PO intake this is providing an estimated 1540 kcals and 47gm Pro to meet 100 % kcal and 78% Pro needs. Spoke with nurse Granado concerning consult and pt labs . Creatinine and GFR are WNL, BUN is elevated, (03/25) Na 135, Bun/Cr 45/0.75, GRF 76. Recommended to push liquids as pt may be dehydrated and recommend removal of Renal diet restriction. Will continue to monitor nutrition related labs and PO intake. Anthropometrics HT: 55 WT: 129 LB (58.64 kg) BMI: 21.51 (Normal) GI/ Skin Integrity GI: WNL, Flat, Soft, Non- tender BM: 03/31 x2 I/O: 1460/Not Noted Skin: RT knee abrasion, healing Manny: 15 Diet Order: Pureed, Renal Standard Estimated Energy Needs: ( Geriatric, CBW) 7350-6961 kcals (25-30 kcals/ kg) 60-70g Pro (1.0-1.2 g/kg) 1653-5522 ml (25-30 ml/kg) Current Diet Order/ Nutrition Support Pureed, Renal Standard Pertinent Medications Maalox (PRN), Albuterol (PRN), Oscal with Vitamin D, MOM ( PRN), Mag-oxide, Theragran Pertinent Labs 03/25: Na 135, Bun/Cr 45/0.75, GRF 76 Nutritional Hx/Data Height 1.65 m Height (Calculated Centimeters) 165.1 Current Weight (lbs) 58.513 kg Weight (Calculated Kilograms) 58.5 Weight (Calculated Grams) 48080.4 [place] Body Weight 125 LB (56.82 kg) % [place] Body Weight 103 Body Mass Index (BMI) 21.4 Weight Status Approriate GI Symptoms Last BM 03/31 x2 Skin Integrity/Comment: Skin: RT knee abrasion, healing Manny: 15 Current %PO Fair (50-74%) Estimated Nutritional Goals BEE in Kcals: Using Current wt Calories/Kcals/Kg 25-30 Kcals Calculated 5658-9040 Protein: Using Current wt Protein g/k.0-1.2 Protein Calculated 60-70 Fluid: ml 0901-8400 ml (25-30 ml/kg) Nutritional Problem 1. Problem Problem Altered nutrition related labs Etiology r/t pathophysiological causes Signs/Symptoms: aeb (03/25) Na 135, Bun/Cr 45/ 0.75, GRF 76. Intervention/Recommendation Comments Recommend removal of Renal diet restriction d/t Creatinine and GFR WNL. Expected Outcomes/Goals Expected Outcomes/Goals 1. PO intake to continue to meet >75% of nutritional needs . 2. Monitor PO intake, wt, nutrition related labs, and skin integrity. 3. F/U as low risk in 7-10 days, 04/08-04/11
--- NOTE | 2019-04-09 05:04 | Progress Notes ---
DATE: SUBJECTIVE: Chart was reviewed and the patient interviewed. Also discussed the patient's condition with the staff and reviewed records and labs. The patient is still having episodes of yelling and screaming on and off, but is less irritable and less agitated. The patient is still rambling and thought processes are circumstantial and tangential with occasional flight of ideas. The patient also still easily agitated. She also is still yelling "help, help" and when the staff goes to respond to her request of help, she cannot explain what help she wants and she is restless. Otherwise, the patient is compliant with taking her medications with no side effects of medications. ASSESSMENT: The patient is still agitated and is still psychotic. TREATMENT PLAN: Continue to monitor behavior and condition closely. Also, continue adjusting psychotropic medications and working on behavioral modification. JOB# [id number]
--- NOTE | 2019-04-09 08:37 | Progress Notes ---
DATE: SUBJECTIVE: Chart reviewed and the patient interviewed. Also discussed the patient's condition with the staff and reviewed records and labs. The patient still has episodes of yelling and screaming and restlessness. The patient also is still exhibiting irritable mood and she is staying in bed, but restless. The patient also is confused and still unable to carry on coherent conversation. Otherwise, the patient is compliant with taking her medications with no side effects of medications. ASSESSMENT: The patient is still confused and agitated. TREATMENT PLAN: Depakote blood level that was done on 04/02/2019 came back to be 82. We will repeat Depakote blood level today. Also, continue Seroquel 25 mg twice a day and Depakote 500 mg twice a day as well as Ativan 0.5 mg 3 times a day and continue to follow up closely. JOB# [id number]
[2019-04-09] MEDS: Multivitamin Tab PO SCH (08:46)
[2019-04-09] MEDS: Calcium Carb/Vit D 500 mg/200 U Tab PO SCH (08:46)
[2019-04-09] MEDS: Hydrocodone/APAP 5mg/325mg Tab PO PRN ×2 (08:46→21:03)
--- NOTE | 2019-04-09 15:27 | Internal Medicine Prog Note ---
Internal Medicine Subjective - Subjective Service Date: 04/09/19 Patient is:: awake, verbal, agitated, confused Patient Complaints of:: other (C/o Right knee pain.) Per staff patient has:: no adverse event, no episodes of fall Internal Medicine Objective - Physical Exam Vitals and I&O: Vital Signs Temp 96.6 F 04/09/19 14:00 Pulse 63 04/09/19 14:00 Resp 20 04/09/19 14:00 BP 89/50 04/09/19 14:00 Pulse Ox 93 04/09/19 14:00 Intake & Output 04/08/19 04/09/19 04/09/19 18:59 06:59 18:59 Intake Total 600 240 Balance 600 240 Intake: Oral 600 240 Other: # Voids 3 2 # Bowel Movements 1 Active Medications: Current Medications Acetaminophen (Tylenol Extra Strength) 500 mg PO BID PRN PRN Reason: MILD PAIN (LEVEL 1-3) Stop: 05/28/19 20:59 Last Admin: 03/30/19 11:54 Dose: 500 mg Acetaminophen/Hydrocodone Bitart ([place] 5mg/325mg) 1 tab PO Q4H PRN PRN Reason: Pain (Moderate 4-6) Stop: 05/29/19 14:59 Last Admin: 04/09/19 08:46 Dose: 1 tab Al Hydrox/Mg Hydrox/Simethicone (Maalox) 30 ml PO Q4HR PRN PRN Reason: GI DISTRESS Stop: 05/28/19 21:18 Albuterol/Ipratropium (Duoneb Neb) 3 ml HHN Q4H PRN PRN Reason: Shortness of Breath Stop: 05/28/19 21:18 Alendronate Sodium (Fosamax) 70 mg PO Sa@0630 [facility] Stop: 05/29/19 06:29 Last Admin: 04/06/19 06:21 Dose: 70 mg Calcium/Vitamin D (Oscal W/Vitamin D) 1 tab PO DAILY [facility] Stop: 05/29/19 08:59 Last Admin: 04/09/19 08:46 Dose: 1 tab Celecoxib (Celebrex) 100 mg PO BID [facility] Stop: 05/29/19 08:59 Last Admin: 04/09/19 08:46 Dose: 100 mg Divalproex Sodium (Depakote Dr) 500 mg PO BID [facility]; Protocol Stop: 05/29/19 13:59 Last Admin: 04/09/19 08:46 Dose: 500 mg Lorazepam (Ativan) 0.5 mg PO TID [facility]; Protocol Stop: 05/29/19 08:59 Last Admin: 04/09/19 14:03 Dose: 0.5 mg Magnesium Hydroxide (Milk Of Magnesia) 30 ml PO HS PRN PRN Reason: Constipation Stop: 05/28/19 21:18 Magnesium Oxide (Mag-Oxide) 200 mg PO BID [facility] Stop: 05/29/19 08:59 Last Admin: 04/09/19 08:46 Dose: 200 mg Multivitamins/Vitamin C (Theragran) 1 tab PO DAILY [facility] Stop: 05/29/19 08:59 Last Admin: 04/09/19 08:46 Dose: 1 tab Quetiapine Fumarate (Seroquel) 25 mg PO BID [facility]; Protocol Stop: 06/01/19 08:59 Last Admin: 04/09/19 08:46 Dose: 25 mg Zolpidem Tartrate (Ambien) 5 mg PO HS PRN PRN Reason: Insomnia Stop: 05/28/19 21:18 Last Admin: 04/07/19 20:21 Dose: 5 mg General: weak, demented HEENT: NC/AT, PERRLA Neck: Supple, No JVD Lungs: other (no acute respiratory distress) Cardiovascular: RRR Abdomen: soft, non-tender, non-distended Extremities: pain, other (right knee abrasion- healing) Neurological: no change, disorganized Internal Medicine Assmt/Plan - Assessment Assessment: Bipolar disorder. Osteoarthritis. Osteoporosis. Right knee pain. Psychosis. Dementia. - Plan Plan: Continuation of care. Monitor vitals and labs. Monitor diet and nutritional support. Continue present meds as directed. Psych management per Psych. Pain management. Fall precaution. Continue present care management. Nutritional Asmnt/Malnutr-PDOC - Dietary Evaluation Malnutrition Findings (Please click <Entered> for more info): Nutritional Asmnt/Malnutrition Start: 04/01/19 12: 51 Text: Status: Active Freq: Protocol: Document 04/01/19 12:51 JAIME (Rec: 04/01/19 12:54 JAIME [email or web address]) Nutritional Asmnt/Malnutrition Patient General Information Nutritional Screening Moderate Risk Consult Diagnosis Psychosis Pertinent Medical Hx/Surgical Hx Bipolar Disorder, Osteoarthritis, Osteoporosis Subjective Information Consult: elevated BUN and BUN/ Cr Ratio Pt is a 73-year-old female admitted on 03/29 d/t aggressive behavior towards nursing facility staff. Pt is eating an estimated 67% of meals Per Meal/Nutrition Activity Record. Dietary is currently providing an estimated 2300 kcals and 70 gm Pro, per Pt PO intake this is providing an estimated 1540 kcals and 47gm Pro to meet 100 % kcal and 78% Pro needs. Spoke with nurse Granado concerning consult and pt labs . Creatinine and GFR are WNL, BUN is elevated, (03/25) Na 135, Bun/Cr 45/0.75, GRF 76. Recommended to push liquids as pt may be dehydrated and recommend removal of Renal diet restriction. Will continue to monitor nutrition related labs and PO intake. Anthropometrics HT: 55 WT: 129 LB (58.64 kg) BMI: 21.51 (Normal) GI/ Skin Integrity GI: WNL, Flat, Soft, Non- tender BM: 03/31 x2 I/O: 1460/Not Noted Skin: RT knee abrasion, healing Manny: 15 Diet Order: Pureed, Renal Standard Estimated Energy Needs: ( Geriatric, CBW) 7441-4489 kcals (25-30 kcals/ kg) 60-70g Pro (1.0-1.2 g/kg) 7443-9158 ml (25-30 ml/kg) Current Diet Order/ Nutrition Support Pureed, Renal Standard Pertinent Medications Maalox (PRN), Albuterol (PRN), Oscal with Vitamin D, MOM ( PRN), Mag-oxide, Theragran Pertinent Labs 03/25: Na 135, Bun/Cr 45/0.75, GRF 76 Nutritional Hx/Data Height 5 ft 5 in Height (Calculated Centimeters) 165.1 Current Weight (lbs) 129 lb Weight (Calculated Kilograms) 58.5 Weight (Calculated Grams) 69622.4 [place] Body Weight 125 LB (56.82 kg) % [place] Body Weight 103 Body Mass Index (BMI) 21.4 Weight Status Approriate GI Symptoms Last BM 03/31 x2 Skin Integrity/Comment: Skin: RT knee abrasion, healing Manny: 15 Current %PO Fair (50-74%) Estimated Nutritional Goals BEE in Kcals: Using Current wt Calories/Kcals/Kg 25-30 Kcals Calculated 8476-7857 Protein: Using Current wt Protein g/k.0-1.2 Protein Calculated 60-70 Fluid: ml 6820-6722 ml (25-30 ml/kg) Nutritional Problem 1. Problem Problem Altered nutrition related labs Etiology r/t pathophysiological causes Signs/Symptoms: aeb (03/25) Na 135, Bun/Cr 45/ 0.75, GRF 76. Intervention/Recommendation Comments Recommend removal of Renal diet restriction d/t Creatinine and GFR WNL. Expected Outcomes/Goals Expected Outcomes/Goals 1. PO intake to continue to meet >75% of nutritional needs . 2. Monitor PO intake, wt, nutrition related labs, and skin integrity. 3. F/U as low risk in 7-10 days, 04/08-04/11
--- NOTE | 2019-04-10 07:28 | Discharge Summary ---
DATE OF DISCHARGE: 04/10/2019 AGE: 73. SEX: Female. PHYSICIAN: Dr. Fried. FINAL DIAGNOSIS AND PRIMARY DIAGNOSIS: Bipolar disorder, manic episode, moderate to severe, with psychotic features. REASON FOR HOSPITALIZATION: The patient was admitted to the hospital from [facility] because of increased irritability and agitation and mood swings and difficulty following directions. HOSPITAL COURSE: The patient continued to be extremely irritable and extremely agitated. The patient also was angry and had labile affect. The patient was started on Seroquel and the dose adjusted to 25 mg twice a day and also was given Depakote and the dose adjusted to 500 mg twice a day. Depakote blood level came back to be 82. The patient was calmer and less irritable and less agitated and the patient was discharged back to [facility]. PHYSICAL EXAMINATION: Physical exam of the patient was basically within normal. The patient had no major medical problems while in the hospital. AFTER DISCHARGE PLANS: The [facility] to [facility] with plans for outpatient and treating her there. EXPECTED OUTCOME AFTER DISCHARGE: Fair if the patient followed up with her outpatient treatment and also continued to comply with psychotropic medications. JOB# [id number]
[2019-04-10] MEDS: Multivitamin Tab PO SCH (09:07)
[2019-04-10] MEDS: Calcium Carb/Vit D 500 mg/200 U Tab PO SCH (09:07)
--- NOTE | 2019-04-10 12:33 | Internal Medicine Prog Note ---
Internal Medicine Subjective - Subjective Service Date: 04/10/19 Patient seen and examined:: with staff Patient is:: awake, verbal, agitated, confused Patient Complaints of:: other (C/o Right knee pain.) Per staff patient has:: no adverse event, no episodes of fall Internal Medicine Objective - Physical Exam Vitals and I&O: Vital Signs Temp 98.6 F 04/10/19 06:33 Pulse 67 04/10/19 06:33 Resp 18 04/10/19 06:33 BP 121/76 04/10/19 06:33 Pulse Ox 96 04/10/19 06:33 Intake & Output 04/09/19 04/10/19 04/10/19 18:59 06:59 18:59 Intake Total 1200 120 Balance 1200 120 Intake: Oral 1200 120 Other: # Voids 5 1 # Bowel Movements 0 1 Active Medications: Current Medications Acetaminophen (Tylenol Extra Strength) 500 mg PO BID PRN PRN Reason: MILD PAIN (LEVEL 1-3) Stop: 05/28/19 20:59 Last Admin: 03/30/19 11:54 Dose: 500 mg Acetaminophen/Hydrocodone Bitart (Cecilia 5mg/325mg) 1 tab PO Q4H PRN PRN Reason: Pain (Moderate 4-6) Stop: 05/29/19 14:59 Last Admin: 04/09/19 21:03 Dose: 1 tab Al Hydrox/Mg Hydrox/Simethicone (Maalox) 30 ml PO Q4HR PRN PRN Reason: GI DISTRESS Stop: 05/28/19 21:18 Albuterol/Ipratropium (Duoneb Neb) 3 ml HHN Q4H PRN PRN Reason: Shortness of Breath Stop: 05/28/19 21:18 Alendronate Sodium (Fosamax) 70 mg PO Sa@0630 [facility] Stop: 05/29/19 06:29 Last Admin: 04/06/19 06:21 Dose: 70 mg Calcium/Vitamin D (Oscal W/Vitamin D) 1 tab PO DAILY [facility] Stop: 05/29/19 08:59 Last Admin: 04/10/19 09:07 Dose: 1 tab Celecoxib (Celebrex) 100 mg PO BID [facility] Stop: 05/29/19 08:59 Last Admin: 04/10/19 09:07 Dose: 100 mg Divalproex Sodium (Depakote Dr) 500 mg PO BID [facility]; Protocol Stop: 05/29/19 13:59 Last Admin: 04/10/19 09:07 Dose: 500 mg Lorazepam (Ativan) 0.5 mg PO TID [facility]; Protocol Stop: 05/29/19 08:59 Last Admin: 04/10/19 09:07 Dose: 0.5 mg Magnesium Hydroxide (Milk Of Magnesia) 30 ml PO HS PRN PRN Reason: Constipation Stop: 05/28/19 21:18 Magnesium Oxide (Mag-Oxide) 200 mg PO BID [facility] Stop: 05/29/19 08:59 Last Admin: 04/10/19 09:06 Dose: 200 mg Multivitamins/Vitamin C (Theragran) 1 tab PO DAILY [facility] Stop: 05/29/19 08:59 Last Admin: 04/10/19 09:07 Dose: 1 tab Quetiapine Fumarate (Seroquel) 25 mg PO BID [facility]; Protocol Stop: 06/01/19 08:59 Last Admin: 04/10/19 09:06 Dose: 25 mg Zolpidem Tartrate (Ambien) 5 mg PO HS PRN PRN Reason: Insomnia Stop: 05/28/19 21:18 Last Admin: 04/07/19 20:21 Dose: 5 mg Physical Exam: Patient is less irritable and is getting ready to be discharged today. General: weak, demented, no appears older HEENT: NC/AT, PERRLA Neck: Supple, No JVD Lungs: other (no acute respiratory distress) Cardiovascular: RRR Abdomen: soft, non-tender, non-distended Extremities: pain, other (right knee abrasion- healing) Neurological: no change, disorganized Internal Medicine Assmt/Plan - Assessment Assessment: Bipolar disorder. Osteoarthritis. Osteoporosis. Right knee pain. Psychosis. Dementia. - Plan Plan: Continuation of care. Monitor vitals and labs. Monitor diet and nutritional support. Continue present meds as directed. Continue Psych management per Psych. Pain management. Fall precaution. Discharge planning. Continue present care management. Nutritional Asmnt/Malnutr-PDOC - Dietary Evaluation Malnutrition Findings (Please click <Entered> for more info): Nutritional Asmnt/Malnutrition Start: 04/01/19 12: 51 Text: Status: Active Freq: Protocol: Document 04/01/19 12:51 JAIME (Rec: 04/01/19 12:54 [email or web address]) Nutritional Asmnt/Malnutrition Patient General Information Nutritional Screening Moderate Risk Consult Diagnosis Psychosis Pertinent Medical Hx/Surgical Hx Bipolar Disorder, Osteoarthritis, Osteoporosis Subjective Information Consult: elevated BUN and BUN/ Cr Ratio Pt is a 73-year-old female admitted on 03/29 d/t aggressive behavior towards nursing facility staff. Pt is eating an estimated 67% of meals Per Meal/Nutrition Activity Record. Dietary is currently providing an estimated 2300 kcals and 70 gm Pro, per Pt PO intake this is providing an estimated 1540 kcals and 47gm Pro to meet 100 % kcal and 78% Pro needs. Spoke with nurse Granado concerning consult and pt labs . Creatinine and GFR are WNL, BUN is elevated, (03/25) Na 135, Bun/Cr 45/0.75, GRF 76. Recommended to push liquids as pt may be dehydrated and recommend removal of Renal diet restriction. Will continue to monitor nutrition related labs and PO intake. Anthropometrics HT: 55 WT: 129 LB (58.64 kg) BMI: 21.51 (Normal) GI/ Skin Integrity GI: WNL, Flat, Soft, Non- tender BM: 03/31 x2 I/O: 1460/Not Noted Skin: RT knee abrasion, healing Manny: 15 Diet Order: Pureed, Renal Standard Estimated Energy Needs: ( Geriatric, CBW) 1496-6349 kcals (25-30 kcals/ kg) 60-70g Pro (1.0-1.2 g/kg) 2139-9130 ml (25-30 ml/kg) Current Diet Order/ Nutrition Support Pureed, Renal Standard Pertinent Medications Maalox (PRN), Albuterol (PRN), Oscal with Vitamin D, MOM ( PRN), Mag-oxide, Theragran Pertinent Labs 03/25: Na 135, Bun/Cr 45/0.75, GRF 76 Nutritional Hx/Data Height 1.65 m Height (Calculated Centimeters) 165.1 Current Weight (lbs) 58.513 kg Weight (Calculated Kilograms) 58.5 Weight (Calculated Grams) 52747.4 [place] Body Weight 125 LB (56.82 kg) % [place] Body Weight 103 Body Mass Index (BMI) 21.4 Weight Status Approriate GI Symptoms Last BM 03/31 x2 Skin Integrity/Comment: Skin: RT knee abrasion, healing Manny: 15 Current %PO Fair (50-74%) Estimated Nutritional Goals BEE in Kcals: Using Current wt Calories/Kcals/Kg 25-30 Kcals Calculated 7082-6955 Protein: Using Current wt Protein g/k.0-1.2 Protein Calculated 60-70 Fluid: ml 9453-0568 ml (25-30 ml/kg) Nutritional Problem 1. Problem Problem Altered nutrition related labs Etiology r/t pathophysiological causes Signs/Symptoms: aeb (03/25) Na 135, Bun/Cr 45/ 0.75, GRF 76. Intervention/Recommendation Comments Recommend removal of Renal diet restriction d/t Creatinine and GFR WNL. Expected Outcomes/Goals Expected Outcomes/Goals 1. PO intake to continue to meet >75% of nutritional needs . 2. Monitor PO intake, wt, nutrition related labs, and skin integrity. 3. F/U as low risk in 7-10 days, 04/08-04/11
== END 2019-04-10 13:20 | DRG 885 ==
LOC: GERO 18:10
PROVIDERS: ADMIT Psychiatry & Neurology Psychiatry; ATTEND Psychiatry & Neurology Psychiatry
DX: F31.2 Bipolar disorder, current episode manic severe with psychotic features (principal); F29 Unspecified psychosis not due to a substance or known physiological condition; M19.90 Unspecified osteoarthritis, unspecified site; M81.0 Age-related osteoporosis without current pathological fracture; F03.90 Unspecified dementia, unspecified severity, without behavioral disturbance, psychotic disturbance, mood disturbance, and anxiety; M25.561 Pain in right knee
CPT/HCPCS: 83036-90; Z7610